=== PATIENT | female | born 2000 | race Caucasian/White ===

== ENCOUNTER 2022-07-06 02:00 | Emergency (ER) | payer SELFPAY ==
[2022-07-06] MEDS ORDERED: hydrOXYzine HCl 50 MG/ML SDV IM ONE (02:51)
[2022-07-06] MEDS ORDERED: Famotidine 20 MG Tab PO ONE (02:53)
[2022-07-06] MEDS: Dexamethasone 4 MG/ML 5 ML MDV IM ONE ×2 (03:23→03:37)
[2022-07-06] MEDS ORDERED: hydrOXYzine HCl 50 MG/ML SDV ONE (03:25)
[2022-07-06] MEDS ORDERED: Dexamethasone 4 MG/ML 5 ML MDV PO ONE (03:38)
== END 2022-07-06 04:24 | disposition home or self-care (01) ==
LOC: FB.ED 02:00
DX: L50.9 Urticaria, unspecified (principal); Z88.6 Allergy status to analgesic agent; Z88.2 Allergy status to sulfonamides; Z79.899 Other long term (current) drug therapy; Z86.16 Personal history of COVID-19
CPT/HCPCS: 96372; 99282; A9270; J3410; J8540; J1100

== ENCOUNTER 2022-08-05 22:25 | Emergency (ER) | payer MEDICAID ==
[2022-08-05] MEDS ORDERED: Acetaminophen/HYDROcodone 325-5 MG Tab PO ONE (22:26)
[2022-08-05] MEDS ORDERED: Morphine 4 MG/ML VIAL IVPUSH ONE (22:40)
[2022-08-05] MEDS ORDERED: Sodium Chloride 0.9% 10 ML Syringe FLUSH PRN (22:40)
[2022-08-05] MEDS ORDERED: Ondansetron 4 MG/2 ML SDV IVPUSH ONE (22:40)
[2022-08-05] MEDS ORDERED: Sodium Chloride 0.9% 1,000 ML IV SCH (22:45)
[2022-08-05 23:15] LABS: BASOPHILS ABSOLUTE AUTO 0.1 x10-3/uL (0.0-0.1); BASOPHILS PERCENT AUTO 0.7 % (0.2-1.5); EOSINOPHILS ABSOLUTE AUTO 0.1 x10-3/uL (0.0-0.8); EOSINOPHILS PERCENT AUTO 1.7 % (0.6-8.1); HEMATOCRIT 33.5 % (34.2-48.2); HEMOGLOBIN 10.4 g/dL (11.4-15.5); LYMPHOCYTES ABSOLUTE AUTO 3.2 x10-3/uL (1.0-4.4); LYMPHOCYTES PERCENT AUTO 38.3 % (18.4-52.1); MEAN CORPUSCULAR HEMOGLOBIN 22.9 pg (23.9-33.9); MEAN CORPUSCULAR HGB CONC 31.1 g/dL (31.9-34.8); MEAN CORPUSCULAR VOLUME 73.8 fL (76.7-100.5); MEAN PLATELET VOLUME 10.5 fL (7.1-12.4); MONOCYTES ABSOLUTE AUTO 0.7 x10-3/uL (0.3-1.0); NEUTROPHILS ABSOLUTE AUTO 4.2 x10-3/uL (1.5-6.3); NEUTROPHILS PERCENT AUTO 50.3 % (30.8-76.2); PLATELET COUNT,PLT 253 x10(3)uL (151-488); RED BLOOD CELL COUNT 4.54 x10(6)uL (3.60-5.20); RED CELL DISTRIBUTION WIDTH 18.4 % (12.3-16.5); WHITE BLOOD CELL COUNT,WBC 8.3 x10-3/uL (3.0-10.3)
[2022-08-05 23:22] LABS: BLOOD UREA NITROGEN,BUN 9 mg/dL (7-18); CALCIUM 9.6 mg/dL (8.6-10.2); CARBON DIOXIDE,CO2 26 mmol/L (21-32); CHLORIDE,CL 103 mmol/L (100-110); CREATININE 0.6 mg/dL (0.55-1.02); EST CRCL DRUG DOSING (CG) 116.74 mL/min; ESTIMATED GFR 132 mL/min (>60); GLUCOSE RANDOM 107 mg/dL (80-116); POTASSIUM,K 3.2 mmol/L (3.5-5.3); SODIUM,NA 141 mmol/L (135-145)
[2022-08-05] MEDS ORDERED: Nitrofurantoin Monohydrate/Macrocrystalline 100 MG Cap PO ONE (23:40)
[2022-08-05] MEDS ORDERED: Tamsulosin 0.4 MG Cap.ER PO ONE (23:40)
[2022-08-05] MEDS ORDERED: Ketorolac 30 MG/ML SDV IVPUSH ONE (23:40)
[2022-08-05] MEDS ORDERED: Potassium Chloride 20 MEQ Tab.ER PO STA (23:43)
== END 2022-08-06 00:43 | disposition home or self-care (01) ==
LOC: FB.ED 22:25
DX: N13.2 Hydronephrosis with renal and ureteral calculous obstruction (principal); E87.6 Hypokalemia; Z88.1 Allergy status to other antibiotic agents; Z88.8 Allergy status to other drugs, medicaments and biological substances; Z86.16 Personal history of COVID-19
CPT/HCPCS: 36415; 74176; 80048; 85025; 96361; 96374; 96375; 99284; A9270; J1885; J2270; J2405; J3490; J7030